=== PATIENT | female | born 1990 | race Two or more races ===

== ENCOUNTER 2017-09-30 11:00 | Emergency (ER) | payer BC, MEDICAID ==
[~2017-09-30] VITALS: Ht 160 cm; Wt 61.7 kg
[2017-09-30 11:10] VITALS: BP 103/72
== END 2017-09-30 12:30 | disposition home or self-care (01) ==
LOC: ER 11:00
DX: S63.501A Unspecified sprain of right wrist, initial encounter (principal); X58.XXXA Exposure to other specified factors, initial encounter; Y93.89 Activity, other specified; Y92.89 Other specified places as the place of occurrence of the external cause; Y99.8 Other external cause status
CPT/HCPCS: 73110